=== PATIENT | female | born 1985 | race Asian ===

== ENCOUNTER 2018-08-19 10:09 | Outpatient (CLI) | payer BC | END 2018-08-19 19:57 | disposition home or self-care (01) | LOC: SUS 10:09 | DX: Z34.91 Encounter for supervision of normal pregnancy, unspecified, first trimester (principal); Z3A.01 Less than 8 weeks gestation of pregnancy | CPT/HCPCS: 76801; 76817 ==

== ENCOUNTER 2018-09-09 10:28 | Emergency (ER) | payer BC ==
[~2018-09-09] VITALS: Ht 162.6 cm; Wt 70.3 kg
[2018-09-09 10:47] VITALS: BP_SYST 105
--- NOTE | 2018-09-09 11:27 | NUR ---
Paged patient from lobby for bed placement, no response. Patient was seen leaving ER and into car driving off.
== END 2018-09-09 11:27 | disposition left against medical advice (07) ==
LOC: SED 10:28
DX: Z00.00 Encounter for general adult medical examination without abnormal findings (principal); Z3A.08 8 weeks gestation of pregnancy; Z53.21 Procedure and treatment not carried out due to patient leaving prior to being seen by health care provider

== ENCOUNTER 2018-09-24 16:07 | Emergency (ER) | payer BC ==
[~2018-09-24] VITALS: Ht 162.6 cm; Wt 68.0 kg
[2018-09-24 16:16] VITALS: BP_SYST 105
[2018-09-24 17:30] LABS: BASOPHILS % (AUTO) 0.5 % (0.0-2.0); EOSINOPHILS # (AUTO) 0.1 K/uL (0.0-0.4); EOSINOPHILS % (AUTO) 0.9 % (0.0-4.0); HEMATOCRIT 34.7 % (36-48); HEMOGLOBIN 12.1 g/dL (12.0-16.0); LYMPHOCYTES # (AUTO) 1.3 K/uL (1.0-5.5); LYMPHOCYTES % (AUTO) 18.4 % (20.5-51.5); MEAN CORPUSCULAR HEMOGLOBIN 32 pg (27-31); MEAN CORPUSCULAR HGB CONC 35 % (32-36); MEAN CORPUSCULAR VOLUME 91 fL (79.0-98.0); MONOCYTES # (AUTO) 0.4 K/uL (0.0-1.0); MONOCYTES % (AUTO) 5.5 % (1.7-9.3); NEUTROPHILS # (AUTO) 5.1 K/uL (1.8-7.7); NEUTROPHILS % (AUTO) 74.7 % (40.0-70.0); PLATELET COUNT (AUTO) 216 K/uL (130-430); RED BLOOD CELL COUNT(AUTO) 3.83 MIL/uL (4.2-6.2); RED CELL DISTRIBUTION WIDTH 12.8 % (9.0-15.0); WHITE BLOOD COUNT (AUTO) 6.9 K/uL (4.8-10.8)
[2018-09-24 17:48] LABS: CREATININE 0.56 mg/dL (0.55-1.30); POTASSIUM 3.9 mmol/L (3.5-5.1)
[2018-09-24 21:40] VITALS: BP_SYST 110
== END 2018-09-24 21:40 | disposition home or self-care (01) ==
LOC: SED 16:07
DX: O02.1 Missed abortion (principal); O46.91 Antepartum hemorrhage, unspecified, first trimester; Z3A.10 10 weeks gestation of pregnancy
CPT/HCPCS: 36415; 76801; 76817; 80048; 84702-TC; 85025; 86900; 86901; 99284